=== PATIENT | female | born 1930 | race Caucasian/White ===

== ENCOUNTER → 2017-08-06 | Outpatient (CLI) | payer MEDICARE ==
[2017-08-06 12:41] LABS: ABSOLUTE EOSINOPHILS # (AUTO) 0.2 10^3/uL (0.0-0.6); ABSOLUTE LYMPHOCYTES (AUTO) 1.9 10^3/uL (0.5-4.7); ABSOLUTE MONOCYTES (AUTO) 0.7 10^3/uL (0.1-1.4); ABSOLUTE NEUT (AUTO) 6.2 10^3/uL (1.7-8.2); BASOPHILS % (AUTO) 0.5 % (0-2); EOSINOPHILS % (AUTO) 2.6 % (0-6); HEMATOCRIT 35.1 % (36.0-47.0); HEMOGLOBIN 11.9 g/dL (12.0-15.5); LYMPHOCYTES % (AUTO) 21.3 % (13-45); MEAN CORPUSCULAR HEMOGLOBIN 32.1 pg (27.0-33.4); MEAN CORPUSCULAR HGB CONC 33.9 g/dL (32.0-36.0); MEAN CORPUSCULAR VOLUME 95 fl (80-97); MONOCYTES % (AUTO) 7.7 % (3-13); PLATELET COUNT 214 10^3/uL (150-450); RED CELL DISTRIBUTION WIDTH 13.8 % (11.5-14.0); SEGMENTED NEUTROPHILS % (AUTO) 67.9 % (42-78); TOTAL CELLS COUNTED % (AUTO) 100 %; WHITE BLOOD COUNT 9.1 10^3/uL (4.0-10.5)
[2017-08-06 13:07] LABS: ALANINE AMINOTRANSFERASE 25 U/L (9-52); ALBUMIN 3.5 g/dL (3.5-5.0); ALKALINE PHOSPHATASE 91 U/L (38-126); ASPARTATE AMINO TRANSFERASE 23 U/L (14-36); BILIRUBIN,DIRECT 0.3 mg/dL (0.0-0.4); BILIRUBIN,TOTAL 0.5 mg/dL (0.2-1.3); BLOOD UREA NITROGEN 13 mg/dL (7-20); CALCIUM 10.2 mg/dL (8.4-10.2); GLUCOSE 110 mg/dL (75-110); TOTAL PROTEIN 6.7 g/dL (6.3-8.2)
[2017-08-06 13:12] LABS: C-REACTIVE PROTEIN < 5.0 mg/L (<10.0)
[2017-08-06 13:19] LABS: ANION GAP 6 (5-19); CARBON DIOXIDE 32 mmol/L (22-30); CHLORIDE 103 mmol/L (98-107); SODIUM 141.3 mmol/L (137-145)
[2017-08-06 13:21] LABS: ERYTHROCYTE SEDIMENTATION RATE 44 mm/hr (0-30)
--- NOTE | 2017-08-07 11:47 | XCELERA REPORT ---
[address] [address] Lower Extremity Arterial Evaluation Name: QUANG ORTIZ Age: 86 yrs Gender: Female : 1930 Patient Status: Outpatient Patient Location: Study Date: 08/06/2017 11:12 AM Procedure: A color flow and duplex scan of the lower extremity arteries was performed bilaterally with velocity and waveform anaylsis. Ankle brachial indicies performed. 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 Monophasic in the Posterior Tibial artery. Reversal of flow distally in the Posterior Tibial artery. 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 With sequential disease. Ankle Brachial index not obtainable due to bandaging. Left Side Arterial Evaluation Normal velocity and biphasic waveforms ,fairly well preserved amplitude noted from the Common Femoral artery to the Dorsalis Pedis artery. Monophasic in the Posterior Tibial artery. 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 With sequential disease. Ankle Brachial index not obtainable due to bandaging. Interpretation Summary Moderate hemodynamically significant lesions in the bilateral lower extremities, on duplex imaging, at rest. : SAMMIE RING > Juan Carias
== END ==
LOC: SP 10:16
PROVIDERS: ATTEND Preventive Medicine Undersea and Hyperbaric Medicine
DX: L97.422 Non-pressure chronic ulcer of left heel and midfoot with fat layer exposed (principal)
CPT/HCPCS: 36415; 80053; 85025; 85652; 86140; 93925

== ENCOUNTER 2017-12-12 16:10 | Inpatient (IN) | payer MEDICARE ==
[2017-12-12] MEDS ORDERED: VANCOMYCIN HCL INJ 1000 MG VIAL IV ONE (16:48)
--- NOTE | 2017-12-12 16:48 | ER Document Report ---
ED General - General Chief Complaint: Urinary Problem Stated Complaint: URINARY ISSUES Time Seen by Provider: 12/12/17 16:40 Mode of Arrival: Ambulatory Information source: Patient Notes: 87-year-old female with a history of hypertension, dyslipidemia, remote history of bladder cancer who was sent to the emergency room because hematuria. On physical exam, patient does have noticeable erythema and weeping wound of the right lower extremity. TRAVEL OUTSIDE OF THE [place] IN LAST 30 DAYS: No - HPI Onset: Just prior to arrival Onset/Duration: Gradual Quality of pain: No pain Severity: None Pain Level: Denies Associated symptoms: denies: Chest pain, Fever, Shortness of breath Exacerbated by: Denies Relieved by: Denies Similar symptoms previously: Yes Recently seen / treated by doctor: No - Related Data Allergies/Adverse Reactions: Sulfa (Sulfonamide Antibiotics) Allergy (Mild, Verified 09/20/15 09:40) rash ether Allergy (Mild, Uncoded 09/20/15 09:40) muscle spasms Past Medical History - General Information source: Patient - Social History Smoking Status: Unknown if Ever Smoked Cigarette use (# per day): No Chew tobacco use (# tins/day): No Frequency of alcohol use: None Drug Abuse: None Lives with: Family Family History: Reviewed & Not Pertinent Patient has suicidal ideation: No Patient has homicidal ideation: No - Past Medical History Cardiac Medical History: Reports: Hx Hypercholesterolemia, Hx Hypertension Denies: Hx Heart Attack Pulmonary Medical History: Denies: Hx Asthma Neurological Medical History: Denies: Hx Cerebrovascular Accident, Hx Seizures Renal/ Medical History: Denies: Hx Peritoneal Dialysis GI Medical History: Denies: Hx Hepatitis, Hx Hiatal Hernia, Hx Ulcer Infectious Medical History: Denies: Hx Hepatitis Past Surgical History: Reports: Hx Genitourinary Surgery - bladder surgery, Hx Hysterectomy. Denies: Hx Mastectomy, Hx Open Heart Surgery, Hx Pacemaker Review of Systems - Review of Systems Constitutional: denies: Chills, Fever EENT: No symptoms reported Cardiovascular: No symptoms reported Respiratory: No symptoms reported Gastrointestinal: No symptoms reported Genitourinary: See HPI Female Genitourinary: See HPI Musculoskeletal: See HPI Skin: See HPI Hematologic/Lymphatic: No symptoms reported Neurological/Psychological: See HPI Physical Exam - Vital signs Vitals: Temp Pulse Resp BP Pulse Ox 98.6 F 84 18 132/65 H 99 12/12/17 16:18 12/12/17 16:18 12/12/17 16:18 12/12/17 16:18 12/12/17 16:18 Notes: Physical exam: GENERAL: Well 87-year-old female who is alert, hard of hearing, no acute distress HEAD: Atraumatic, normocephalic. EYES: Pupils equal round and reactive to light, extraocular movements intact, sclera anicteric, conjunctiva are normal. ENT: TMs normal, nares patent, oropharynx clear without exudates. Moist mucous membranes. NECK: Normal range of motion, supple without obvious mass or JVD. LUNGS: Breath sounds clear to auscultation bilaterally and equal. No wheezes rales or rhonchi. HEART: Regular rate and rhythm without murmurs, rubs or gallops. ABDOMEN: Soft, normoactive bowel sounds. No tenderness to palpation. No guarding, no rebound. No masses appreciated. EXTREMITIES: Right lower extremity shows a weeping wound over the distal calf with erythema from the ankle detention up the tibia with warmth. No obvious fluctuance. DP pulse is easily dopplerable (it is been marked). There is good capillary refill to the foot. NEUROLOGICAL: Cranial nerves II through XII grossly intact. Normal speech, moving all extremities. PSYCH: Normal mood, normal affect. SKIN: Warm, Dry, normal turgor, no rashes or lesions noted. Course - Re-evaluation Re-evalutation: 12/12/17 21:40 Note: I have spoken to the family: The patient has been weak, she has been falling. She has a remote history of bladder cancer and started having blood in the urine so they were concerned and brought her into the hospital. A Loya was placed and she does have red blood cells and white blood cells and bacteria in the urine. A CT and an ultrasound showed no obvious bladder mass. I have explained to the family that this does not exclude a bladder cancer return, but a reasonable approach would be to treat her as a hemorrhagic cystitis first and see the response. Additionally, on the physical exam, the patient has a very significant right lower extremity cellulitis developing around a posterior wound. She does have good distal pulses. But the excess cellulitis is extending from the ankle all the way up to the proximal knee. Thus, she was started on IV antibiotics for cellulitis as well. - Vital Signs Vital signs: Temp Pulse Resp BP Pulse Ox 99.1 F 84 22 H 141/63 H 99 12/12/17 22:42 12/12/17 16:18 12/12/17 22:01 12/12/17 22:01 12/12/17 22:01 - Laboratory Result Diagrams: 12/12/17 17:41 12/12/17 18:30 Laboratory results interpreted by me: 12/12/17 12/12/17 12/12/17 17:41 18:13 18:30 RBC 3.26 L Hgb 10.8 L Hct 31.4 L RDW 14.5 H Sodium 136.5 L Total Protein 6.1 L Albumin 3.0 L Urine Protein 100 H Urine Glucose (UA) 50 H Urine Ketones TRACE H Urine Blood LARGE H Urine Ascorbic Acid 20 H - Diagnostic Test Radiology reviewed: Image reviewed, Reports reviewed - Renal ultrasound shows no bladder masses. CT of the abdomen shows no masses. X-rays show no bony lesions Critical Care Note - Critical Care Note Total time excluding time spent on procedures (mins): 60 Discharge - Discharge Clinical Impression: Hemorrhagic cystitis, Right lower extremity cellulitis Condition: Stable Disposition: ADMITTED INPATIENT Admitting Provider: Hospitalist - Dr. Alas Unit Admitted: Medical Floor
--- NOTE | 2017-12-12 17:16 | RADIOLOGY REPORT (SQ) ---
EXAM DESCRIPTION: CT LTD RENAL STONE PROTOCOL ON COMPLETED DATE/TIME: 12/12/2017 5:02 pm REASON FOR STUDY: hematuria COMPARISON: None. TECHNIQUE: CT scan of the abdomen and pelvis performed without intravenous or oral contrast. Images reviewed with lung, soft tissue, and bone windows. Reconstructed coronal and sagittal MPR images revi ewed. All images stored on PACS. All CT scanners at this facility use dose modulation, iterative reconstruction, and/or weight based d osing when appropriate to reduce radiation dose to as low as reasonably achievable (ALARA). [facility]: Dose Right [facility]: CareDose [facility]: Dose Right [facility]: Teradose 4D [facility]: Smart Tuloko RADIATION DOSE: CT Rad equipment meets quality standard of care and radiation dose reduction techniq ues were employed. CTDIvol: 13.6 mGy. DLP: 665 mGy-cm.mGy. LIMITATIONS: None. FINDINGS: LOWER CHEST: Cardiomegaly. NON-CONTRASTED LIVER, SPLEEN, ADRENALS: Evaluation limited by lack of IV contrast. No identified sign ificant masses. PANCREAS: No masses. No peripancreatic inflammatory changes. GALLBLADDER: A large gallstone is present. RIGHT KIDNEY AND URETER: No suspicious masses. Assessment limited by lack of IV contrast. A tiny no nobstructing intrarenal calculus is present. No hydronephrosis or hydroureter. LEFT KIDNEY AND URETER: No suspicious masses. Assessment limited by lack of IV contrast. There is 6 mm nonobstructing lower calyceal calculus. No hydronephrosis or hydroureter. AORTA AND RETROPERITONEUM: No aneurysm. No retroperitoneal masses or adenopathy. BOWEL AND PERITONEAL CAVITY: No obvious masses or inflammatory changes. No free fluid. APPENDIX: Not identified. PELVIS, BLADDER, AND ABDOMINAL WALL:The urinary bladder is normal. There is an 8 cm wide ventral her mamadou containing unobstructed bowel. BONES: Degenerative disc disease. No osseous lesions. 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 OTHER: No other significant finding. IMPRESSION: 1. Cardiomegaly. 2. Cholelithiasis. 3. A nonobstructing intrarenal calculus in each kidney. 4. Ventral hernia containing unobstructed bowel. 5. Degenerative disc disease. 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 COMMENT: Quality ID # [id number]: Final reports with documentation of one or more dose reduction techniques (e.g., Automated exposure control, adjustment of the mA and/or kV according to patient size, use of iterative reconstruction technique) TECHNICAL DOCUMENTATION: JOB ID: [id number] [employer], a Division of [employer]- All Rights Reserved Reading location - IP/workstation name: [email or web address]
--- NOTE | 2017-12-12 17:29 | RADIOLOGY REPORT (SQ) ---
EXAM DESCRIPTION: TIBIA FIBULA RIGHT COMPLETED DATE/TIME: 12/12/2017 5:17 pm REASON FOR STUDY: infected wound COMPARISON: None. NUMBER OF VIEWS: Two views. TECHNIQUE: Two radiographic images acquired of the right tibia and fibula to include the knee and an kle in at least one projection. LIMITATIONS: None. FINDINGS: MINERALIZATION: Osteopenia. BONES: No acute fracture or dislocation. No worrisome bone lesions. SOFT TISSUES: Chondrocalcinosis of the right knee. Vascular calcifications. OTHER: No other significant finding. IMPRESSION: NO RADIOGRAPHIC EVIDENCE OF ACUTE INJURY. TECHNICAL DOCUMENTATION: JOB ID: [id number] [employer]- All Rights Reserved Reading location - IP/workstation name: [email or web address]
--- NOTE | 2017-12-12 17:29 | RADIOLOGY REPORT (SQ) ---
EXAM DESCRIPTION: CHEST SINGLE VIEW COMPLETED DATE/TIME: 12/12/2017 5:17 pm REASON FOR STUDY: hematuria COMPARISON: 09/24/2015 NUMBER OF VIEWS: One view. TECHNIQUE: Single frontal radiographic view of the chest acquired. LIMITATIONS: None. FINDINGS: LUNGS AND PLEURA: No new opacities, masses or pneumothorax. No pleural effusion. Attenuate d blood vessels and flattened enrico-diaphragms. MEDIASTINUM AND HILAR STRUCTURES: No masses. Contour normal. HEART AND VASCULAR STRUCTURES: Heart stable in size. Normal vasculature. BONES: No acute findings. HARDWARE: None in the chest. OTHER: No other significant finding. IMPRESSION: COPD. NO ACUTE RADIOGRAPHIC FINDING IN THE CHEST. TECHNICAL DOCUMENTATION: JOB ID: [id number] [employer]- All Rights Reserved Reading location - IP/workstation name: [email or web address]
[2017-12-12 17:51] LABS: ABSOLUTE EOSINOPHILS # (AUTO) 0.2 10^3/uL (0.0-0.6); ABSOLUTE LYMPHOCYTES (AUTO) 1.4 10^3/uL (0.5-4.7); ABSOLUTE MONOCYTES (AUTO) 0.9 10^3/uL (0.1-1.4); ABSOLUTE NEUT (AUTO) 5.8 10^3/uL (1.7-8.2); BASOPHILS % (AUTO) 0.6 % (0-2); EOSINOPHILS % (AUTO) 2.8 % (0-6); HEMATOCRIT 31.4 % (36.0-47.0); HEMOGLOBIN 10.8 g/dL (12.0-15.5); LYMPHOCYTES % (AUTO) 16.8 % (13-45); MEAN CORPUSCULAR HEMOGLOBIN 33.2 pg (27.0-33.4); MEAN CORPUSCULAR HGB CONC 34.4 g/dL (32.0-36.0); MEAN CORPUSCULAR VOLUME 97 fl (80-97); PLATELET COUNT 232 10^3/uL (150-450); RED BLOOD COUNT 3.26 10^6/uL (3.72-5.28); RED CELL DISTRIBUTION WIDTH 14.5 % (11.5-14.0); SEGMENTED NEUTROPHILS % (AUTO) 68.8 % (42-78); TOTAL CELLS COUNTED % (AUTO) 100 %; WHITE BLOOD COUNT 8.4 10^3/uL (4.0-10.5)
[2017-12-12 18:44] LABS: APPEARANCE,URINE SLIGHTLY-CLOUDY; BILIRUBIN,URINE NEGATIVE (NEGATIVE); COLOR,URINE RED; GLUCOSE, URINE 50 mg/dL (NEGATIVE); KETONES,URINE TRACE mg/dL (NEGATIVE); LEUKOCYTE ESTERASE,URINE NEGATIVE (NEGATIVE); NITRITE,URINE NEGATIVE (NEGATIVE); PROTEIN,URINE 100 mg/dL (NEGATIVE); URINE SPECIFIC GRAVITY 1.009; UROBILINOGEN,URINE NEGATIVE mg/dL (<2.0)
[2017-12-12 19:15] LABS: ALANINE AMINOTRANSFERASE 31 U/L (9-52); ALKALINE PHOSPHATASE 78 U/L (38-126); ANION GAP 10 (5-19); ASPARTATE AMINO TRANSFERASE 24 U/L (14-36); BILIRUBIN,DIRECT 0.3 mg/dL (0.0-0.4); BILIRUBIN,TOTAL 0.3 mg/dL (0.2-1.3); BLOOD UREA NITROGEN 18 mg/dL (7-20); CALCIUM 9.8 mg/dL (8.4-10.2); CARBON DIOXIDE 28 mmol/L (22-30); CHLORIDE 99 mmol/L (98-107); GLUCOSE 104 mg/dL (75-110); POTASSIUM 4.3 mmol/L (3.6-5.0); SODIUM 136.5 mmol/L (137-145); TOTAL PROTEIN 6.1 g/dL (6.3-8.2)
[2017-12-12] MEDS ORDERED: MORPHINE SULFATE 10 MG/ML INJ IV PRN (20:12)
[2017-12-12] MEDS ORDERED: ONDANSETRON HCL INJ/PF 4 MG/2 ML SDV IV ONE (20:13)
--- NOTE | 2017-12-12 21:06 | RADIOLOGY REPORT (SQ) ---
EXAM DESCRIPTION: U/S RETROPERITON (RENAL/AORTA) COMPLETED DATE/TIME: 12/12/2017 8:56 pm REASON FOR STUDY: gross hemturia, h/o bladder cancer COMPARISON: CT from 12/12/2017 TECHNIQUE: Dynamic and static grayscale images acquired of the kidneys and bladder and recorded on P ACS. Additional selected color Doppler and spectral images recorded. LIMITATIONS: None. FINDINGS: RIGHT KIDNEY: Normal size. Normal echogenicity. No solid or suspicious masses. No hydronep hrosis. No calcifications. LEFT KIDNEY: Normal size. Normal echogenicity. No solid or suspicious masses. No hydronephrosis. No calcifications. BLADDER: No masses visualized. Gonzalez catheter present. OTHER FINDINGS: No other significant finding. IMPRESSION: UNREMARKABLE RENAL ULTRASOUND. GONZALEZ CATHETER WITHIN THE BLADDER. TECHNICAL DOCUMENTATION: JOB ID: [id number] [employer]- All Rights Reserved Reading location - IP/workstation name: [email or web address]
[2017-12-12] MEDS ORDERED: CEFTRIAXONE 1 GM/D5W RTU 1 GM/50 ML RTUPB IV ONE (21:28)
[2017-12-12] MEDS ORDERED: MAG HYDROX/AL HYDROX/SIMETH SUSP 30 ML UDCUP PO PRN (21:40)
[2017-12-12] MEDS ORDERED: ACETAMINOPHEN 325 MG TABLET PO PRN (21:40)
[2017-12-12] MEDS ORDERED: NORMAL SALINE 1000 ML 1,000 ML IV SCH (21:45)
[2017-12-12] MEDS: HEPARIN SOD (PORCINE) 5,000 UNIT/ML 1 ML SYRINGE SUBCUT SCH (23:16)
[2017-12-12] MEDS: METOPROLOL TARTRATE 50 MG TABLET PO SCH (23:17)
[2017-12-13 05:24] LABS: ABSOLUTE EOSINOPHILS # (AUTO) 0.2 10^3/uL (0.0-0.6); ABSOLUTE LYMPHOCYTES (AUTO) 1.5 10^3/uL (0.5-4.7); ABSOLUTE MONOCYTES (AUTO) 0.8 10^3/uL (0.1-1.4); ABSOLUTE NEUT (AUTO) 5.1 10^3/uL (1.7-8.2); BASOPHILS % (AUTO) 0.6 % (0-2); EOSINOPHILS % (AUTO) 2.4 % (0-6); HEMATOCRIT 29.5 % (36.0-47.0); HEMOGLOBIN 10.3 g/dL (12.0-15.5); LYMPHOCYTES % (AUTO) 19.9 % (13-45); MEAN CORPUSCULAR HEMOGLOBIN 33.7 pg (27.0-33.4); MEAN CORPUSCULAR HGB CONC 34.8 g/dL (32.0-36.0); MEAN CORPUSCULAR VOLUME 97 fl (80-97); MONOCYTES % (AUTO) 10.9 % (3-13); PLATELET COUNT 185 10^3/uL (150-450); RED BLOOD COUNT 3.04 10^6/uL (3.72-5.28); RED CELL DISTRIBUTION WIDTH 14.2 % (11.5-14.0); SEGMENTED NEUTROPHILS % (AUTO) 66.2 % (42-78); TOTAL CELLS COUNTED % (AUTO) 100 %; WHITE BLOOD COUNT 7.6 10^3/uL (4.0-10.5)
--- NOTE | 2017-12-13 05:40 | PDOC H&P ---
History of Present Illness Admission Date/PCP: 12/12/17 21:58 ALONZO IBRAHIM Patient complains of: Right leg pain and falls History of Present Illness: QUANG ORTIZ is a 87 year old female with a past medical history of peripheral neuropathy, left heel ulcer, hypertension, chronic left bundle branch block, remote bladder cancer unclear status and gait instability. Patient presents with 12 hours of hematuria, right leg erythema and pain prompting her to seek evaluation in the emergency room where she is found to have moe hematuria, right leg cellulitis and stage IV left heel ulcer. She started on empiric antibiotics and referred to the hospitalist for admission. Patient denies recent change in medications, antibiotics and is otherwise felt well. She admits to exceptional gait instability and is essentially bedbound with exception of transfer from bed to commode. Past Medical History Cardiac Medical History: Reports: Hyperlipidema, Hypertension Denies: Myocardial Infarction Pulmonary Medical History: Denies: Asthma Neurological Medical History: Denies: Seizures Malignancy Medical History: Reports: Other - Bladder cancer GI Medical History: Denies: Hepatitis, Hiatal Hernia Hematology: Denies: Anemia, Sickle Cell Disease Past Surgical History Past Surgical History: Reports: Hysterectomy Denies: Amputation, Mastectomy, Pacemaker Social History Information Source: Patient, Relative Lives with: Family Smoking Status: Never Smoker Frequency of Alcohol Use: None Hx Recreational Drug Use: No Drugs: None Hx Prescription Drug Abuse: No - Advance Directive Resuscitation Status: Full Code Family History Family History: Hypertension Parental Family History Reviewed: Yes Children Family History Reviewed: Yes Sibling(s) Family History Reviewed.: Yes Medication/Allergy Home Medications: Cyanocobalamin (Vitamin B-12) [Vitamin B-12 1000 mcg Tablet] 1,000 mcg PO ASDIR 01/28/13 Fexofenadine HCl [Romana] 180 mg PO DAILY 01/28/13 Pravastatin Sodium [Pravachol] 40 mg PO QHS 01/28/13 Ranitidine HCl [Zantac 150 mg Tablet] 150 mg PO BID 01/28/13 Ascorbic Acid [Vitamin C with Georgie Hips] 1,000 mg PO DAILY 09/20/15 Calcium Citrate/Vitamin D3 [Calcitrate + Vit D Caplet] 1 each PO DAILY 09/20/15 Cranberry Fruit Concentrate [Cranberry 450 mg Tablet] 450 mg PO BID 09/20/15 Folic Acid/Multivit-Min/Lutein [Centrum Silver Chewable Tablet] 1 each PO DAILY 09/20/15 Glucosamine/D3/Boswellia Lily [Osteo Bi-Flex Caplet] 1 each PO BID 09/20/15 Potassium Gluconate [Potassium] 2 tab PO DAILY 09/20/15 Vit A/Vit C/Vit E/Zinc/Copper [Preservision Areds Softgel] 1 each PO BID Vitamin E 1,000 unit PO DAILY 09/20/15 Aspirin [Adult Low Dose Aspirin EC] 81 mg PO DAILY #30 tablet.dr 09/27/15 Benazepril HCl [Lotensin 10 mg Tablet] 10 mg PO DAILY #30 tablet 09/27/15 Levofloxacin [Levaquin 500 mg Tablet] 500 mg PO DAILY #7 tablet 09/27/15 Lidocaine 1 each TP DAILY PRN #30 adh..patch 09/27/15 Metoprolol Tartrate [Lopressor 50 mg Tablet] 50 mg PO Q12 #60 tablet 09/27/15 Benazepril/Hydrochlorothiazide [Lotensin Hct 10-12.5 mg Tablet] 1 each PO DAILY #30 tablet 09/28/15 Tramadol HCl [Ultram] 50 mg PO Q12H PRN #20 tablet 09/28/15 Allergies/Adverse Reactions: Sulfa (Sulfonamide Antibiotics) Allergy (Mild, Verified 09/20/15 09:40) rash ether Allergy (Mild, Uncoded 09/20/15 09:40) muscle spasms Review of Systems Constitutional: PRESENT: as per HPI, fatigue, weakness. ABSENT: chills, fever(s ), headache(s), weight gain, weight loss Eyes: ABSENT: visual disturbances Ears: ABSENT: hearing changes Cardiovascular: ABSENT: chest pain, dyspnea on exertion, edema, orthropnea, palpitations Respiratory: ABSENT: cough, hemoptysis Gastrointestinal: ABSENT: abdominal pain, constipation, diarrhea, hematemesis, hematochezia, nausea, vomiting Genitourinary: PRESENT: as per HPI. ABSENT: dysuria, hematuria Musculoskeletal: PRESENT: as per HPI, muscle weakness. ABSENT: joint swelling Integumentary: PRESENT: as per HPI, lesions - Left heel 2 x 2 centimeter stage IV ulcer, right leg Cellulitis. ABSENT: rash, wounds Neurological: ABSENT: abnormal gait, abnormal speech, confusion, dizziness, focal weakness, syncope Psychiatric: ABSENT: anxiety, depression, homidical ideation, suicidal ideation Endocrine: ABSENT: cold intolerance, heat intolerance, polydipsia, polyuria Hematologic/Lymphatic: ABSENT: easy bleeding, easy bruising Physical Exam Vital Signs: Temp Pulse Resp BP Pulse Ox 99.8 F 109 H 14 127/59 H 100 12/13/17 01:20 12/13/17 01:20 12/13/17 01:20 12/13/17 01:20 12/13/17 01:20 Intake & Output 12/11/17 12/12/17 12/13/17 11:59 11:59 11:59 Weight 64.5 kg General appearance: PRESENT: cooperative, mild distress, other - Hard of hearing Head exam: PRESENT: atraumatic, normocephalic Eye exam: PRESENT: conjunctiva pink, EOMI, PERRLA. ABSENT: scleral icterus Ear exam: PRESENT: normal external ear exam Mouth exam: PRESENT: moist, tongue midline Neck exam: ABSENT: carotid bruit, JVD, lymphadenopathy, thyromegaly Respiratory exam: PRESENT: clear to auscultation roya. ABSENT: rales, rhonchi, wheezes Cardiovascular exam: PRESENT: RRR. ABSENT: diastolic murmur, rubs, systolic murmur Pulses: PRESENT: normal dorsalis pedis pul Vascular exam: PRESENT: normal capillary refill GI/Abdominal exam: PRESENT: normal bowel sounds, soft. ABSENT: distended, guarding, mass, organolmegaly, rebound, tenderness Rectal exam: PRESENT: deferred Extremities exam: PRESENT: tenderness - Left heel 2 x 2 centimeter stage IV heel ulcer, right leg Cellulitis, other Neurological exam: PRESENT: alert, awake, oriented to person, oriented to place , oriented to time, oriented to situation, CN II-XII grossly intact. ABSENT: motor sensory deficit Psychiatric exam: PRESENT: appropriate affect, normal mood. ABSENT: homicidal ideation, suicidal ideation Skin exam: PRESENT: dry, intact, warm. ABSENT: cyanosis, rash Results Laboratory Results: 12/13/17 04:32 12/13/17 04:32 WBC 7.6 RBC 3.04 L Hgb 10.3 L Hct 29.5 L MCV 97 MCH 33.7 H MCHC 34.8 RDW 14.2 H Plt Count 185 Seg Neutrophils % 66.2 Lymphocytes % 19.9 Monocytes % 10.9 Eosinophils % 2.4 Basophils % 0.6 Absolute Neutrophils 5.1 Absolute Lymphocytes 1.5 Absolute Monocytes 0.8 Absolute Eosinophils 0.2 Absolute Basophils 0.0 Impressions: Limited or Localized CT 12/12/17 16:44 IMPRESSION: 1. Cardiomegaly. 2. Cholelithiasis. 3. A nonobstructing intrarenal calculus in each kidney. 4. Ventral hernia containing unobstructed bowel. 5. Degenerative disc disease. 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 Chest X-Ray 12/12/17 16:45 IMPRESSION: COPD. NO ACUTE RADIOGRAPHIC FINDING IN THE CHEST. Tibia/Fibula X-Ray 12/12/17 16:45 IMPRESSION: NO RADIOGRAPHIC EVIDENCE OF ACUTE INJURY. Renal Ultrasound 12/12/17 18:24 IMPRESSION: UNREMARKABLE RENAL ULTRASOUND. GONZALEZ CATHETER WITHIN THE BLADDER. Assessment & Plan - Diagnosis (1) Hematuria Is this a current diagnosis for this admission?: Yes Plan: Urology consult, concern for history of bladder cancer. Follow-up CBC and urology consult (2) Ulcer of left heel Is this a current diagnosis for this admission?: Yes Plan: Concern for osteomyelitis, surgical consultation (3) Cellulitis Is this a current diagnosis for this admission?: Yes Plan: Empiric antibiotics, follow-up blood culture and CBC (4) Falls Is this a current diagnosis for this admission?: Yes Plan: Acute on chronic debility, physical therapy evaluation - Time Time Spent: 50 to 70 Minutes - Inpatient Certification Medical Necessity: Need Close Monitoring Due to Risk of Patient Decompensation
[2017-12-13 05:50] LABS: ANION GAP 7 (5-19); BLOOD UREA NITROGEN 13 mg/dL (7-20); CALCIUM 9.3 mg/dL (8.4-10.2); CARBON DIOXIDE 28 mmol/L (22-30); CHLORIDE 105 mmol/L (98-107); GLUCOSE 93 mg/dL (75-110); POTASSIUM 4.3 mmol/L (3.6-5.0); SODIUM 140.3 mmol/L (137-145)
[2017-12-13] MEDS ORDERED: VANCOMYCIN HCL 0 MG in DEXTROSE 5%-WATER 250 ML IV NR (08:00)
[2017-12-13] MEDS ORDERED: PIPERACILLIN SODIUM/TAZOBACTAM 3.375 GM in NORMAL SALINE 100 ML IV SCH (09:00)
[2017-12-13] MEDS: PIPERACILLIN SODIUM/TAZOBACTAM 2.25 GM in NORMAL SALINE 50 ML IV SCH ×3 (09:33→21:35)
[2017-12-13] MEDS: ASPIRIN 81 MG TABLET, ENT COATED PO SCH (09:33)
[2017-12-13] MEDS: BENAZEPRIL HCL 10 MG TABLET PO SCH (11:37)
[2017-12-13] MEDS: METOPROLOL TARTRATE 50 MG TABLET PO SCH ×2 (11:37→21:35)
--- NOTE | 2017-12-13 15:01 | PDOC CONSULTATION ---
Consultation Consult Date: 12/13/17 Consult reason:: Wounds on feet History of Present Illness Admission Date/PCP: 12/12/17 21:58 ALONZO IBRAHIM History of Present Illness: QUANG ORTIZ is a 87 year old female Debilitated, essentially bedridden, status post total left knee replacement, known bilateral lower extremity wounds, followed with advanced wound clinic, admitted to the hospital service for management of hematuria. Surgery consulted for wound management. Past Medical History Cardiac Medical History: Reports: Hyperlipidema, Hypertension Denies: Myocardial Infarction Pulmonary Medical History: Denies: Asthma Neurological Medical History: Denies: Seizures Malignancy Medical History: Reports: Other - Bladder cancer GI Medical History: Denies: Hepatitis, Hiatal Hernia Hematology: Denies: Anemia, Sickle Cell Disease Past Surgical History Past Surgical History: Reports: Hysterectomy Denies: Amputation, Mastectomy, Pacemaker Social History Lives with: Family Smoking Status: Never Smoker Frequency of Alcohol Use: None Hx Recreational Drug Use: No Drugs: None Hx Prescription Drug Abuse: No - Advance Directive Resuscitation Status: Full Code Family History Family History: Hypertension Parental Family History Reviewed: Yes Children Family History Reviewed: Yes Sibling(s) Family History Reviewed.: Yes Medication/Allergy Home Medications: Alprazolam [Xanax 0.25 mg Tablet] 0.25 mg PO QHS 12/13/17 Ascorbic Acid [Vitamin C 500 mg Tablet] 500 mg PO QPM 12/13/17 Aspirin [Ecotrin 81 mg EC Tablet] 81 mg PO BID 12/13/17 Benazepril HCl [Lotensin 10 mg Tablet] 10 mg PO DAILY 12/13/17 Ca/D3/Mag Ox/Zinc/[employer]/Parvez/Bor [Calcium 600-D3 Plus Caplet] 1 tab PO QPM Cranberry Fruit Concentrate [Cranberry] 450 mg PO DAILY 12/13/17 Cyanocobalamin (Vitamin B-12) [Vitamin B12] 2,500 mcg PO TUTH@1800 12/13/17 Ferrous Sulfate [High Potency Iron] 27 mg PO QPM 12/13/17 Fexofenadine HCl [Romana Allergy] 180 mg PO DAILY 12/13/17 Hydrochlorothiazide [Hydrodiuril 12.5 mg Capsule] 12.5 mg PO DAILY 12/13/17 Meloxicam [Mobic] 7.5 mg PO DAILY 12/13/17 Metoprolol Tartrate [Lopressor 50 mg Tablet] 50 mg PO Q12 12/13/17 Multivitamin [Tab-A-Michaelle (Multiple Vitamin) Tablet] 1 tab PO DAILY 12/13/17 Oxybutynin Chloride [Ditropan 5 mg Tablet] 5 mg PO BID 12/13/17 Potassium 99 mg PO QPM 12/13/17 Pravastatin Sodium [Pravachol] 40 mg PO QHS 12/13/17 Ranitidine HCl [Zantac 150 mg Tablet] 50 mg PO BID 12/13/17 Ropinirole HCl [Requip] 0.5 mg PO QHS 12/13/17 Tramadol HCl [Ultram 50 mg Tablet] 50 mg PO QAM 12/13/17 Tramadol HCl [Ultram 50 mg Tablet] 100 mg PO QHS 12/13/17 Vitamin E 400 unit PO QPM 12/13/17 Allergies/Adverse Reactions: Sulfa (Sulfonamide Antibiotics) Allergy (Mild, Verified 09/20/15 09:40) rash ether Allergy (Mild, Uncoded 09/20/15 09:40) muscle spasms Review of Systems ROS unobtainable: Due to mental status, Other - And hard of hearing Constitutional: PRESENT: as per HPI - Patient bedridden does get up with a walker ocassionally Physical Exam Vital Signs: Temp Pulse Resp BP Pulse Ox 97.9 F 65 16 110/53 L 94 12/13/17 11:28 12/13/17 11:28 12/13/17 11:28 12/13/17 11:28 12/13/17 11:28 Intake & Output 12/12/17 12/13/17 12/14/17 06:59 06:59 06:59 Output Total 850 Balance -850 Weight 64.5 kg General appearance: PRESENT: no acute distress Mouth exam: PRESENT: dry mucosa Extremities exam: PRESENT: other Musculoskeletal exam: PRESENT: other - Operative scar left knee; chronic skin changes right lower extremity with peeling; irregular but clean superficial granulating ulcer lateral aspect right lower extremity; very small stage II pressure ulcer left heel palpable dorsalis pedis pulses bilaterally Results Laboratory Results: 12/13/17 04:32 12/13/17 04:32 12/13/17 12/13/17 04:32 04:32 WBC 7.6 RBC 3.04 L Hgb 10.3 L Hct 29.5 L MCV 97 MCH 33.7 H MCHC 34.8 RDW 14.2 H Plt Count 185 Seg Neutrophils % 66.2 Lymphocytes % 19.9 Monocytes % 10.9 Eosinophils % 2.4 Basophils % 0.6 Absolute Neutrophils 5.1 Absolute Lymphocytes 1.5 Absolute Monocytes 0.8 Absolute Eosinophils 0.2 Absolute Basophils 0.0 Sodium 140.3 Potassium 4.3 Chloride 105 Carbon Dioxide 28 Anion Gap 7 BUN 13 Creatinine 0.75 Est GFR ( Amer) > 60 Est GFR (Non-Af Amer) > 60 Glucose 93 Calcium 9.3 Impressions: Limited or Localized CT 12/12/17 16:44 IMPRESSION: 1. Cardiomegaly. 2. Cholelithiasis. 3. A nonobstructing intrarenal calculus in each kidney. 4. Ventral hernia containing unobstructed bowel. 5. Degenerative disc disease. 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 Chest X-Ray 12/12/17 16:45 IMPRESSION: COPD. NO ACUTE RADIOGRAPHIC FINDING IN THE CHEST. Tibia/Fibula X-Ray 12/12/17 16:45 IMPRESSION: NO RADIOGRAPHIC EVIDENCE OF ACUTE INJURY. Renal Ultrasound 12/12/17 18:24 IMPRESSION: UNREMARKABLE RENAL ULTRASOUND. GONZALEZ CATHETER WITHIN THE BLADDER. Assessment & Plan - Diagnosis (1) Cellulitis Qualifiers: Site of cellulitis: extremity Site of cellulitis of extremity: lower extremity Laterality: right Qualified Code(s): L03.115 - Cellulitis of right lower limb Is this a current diagnosis for this admission?: Yes Plan: Chronic wound, managed and advanced wound center. No evidence of active infection; likely colonized; no need for operative debridement. Recommendations for the left heel wound: 1. Pressure offloading; suggest Allevyn dressing and Heelbo pad. Change dressing daily after soapy water wash Recommendations for right leg wound 1. Allevyn dressing right lower extremity to cover open granulating surface 2. Elbow pad to right heel wall patient at bedrest (2) Ulcer of left heel Qualifiers: Non-pressure ulcer stage: with fat layer exposed Qualified Code(s): L97.422 - Non-pressure chronic ulcer of left heel and midfoot with fat layer exposed Is this a current diagnosis for this admission?: Yes Plan: Grade 2 ulcer; pressure related due to immobility; managed advanced wound center - Time Time Spent: 30 to 50 Minutes Smoking Cessation Education: 3 to 10 minutes Medications reviewed and adjusted accordingly: Yes - Inpatient Certification Based on my medical assessment, after consideration of the patient's comorbidities, presenting symptoms, or acuity I expect that the services needed warrant INPATIENT care.: Yes I certify that my determination is in accordance with my understanding of Medicare's requirements for reasonable and necessary INPATIENT services [42 CFR 412.3e].: Yes
[2017-12-13] MEDS: HEPARIN SOD (PORCINE) 5,000 UNIT/ML 1 ML SYRINGE SUBCUT SCH ×2 (15:12→21:35)
--- NOTE | 2017-12-13 15:12 | PDOC CONSULTATION ---
Consultation Consult Date: 12/13/17 Attending physician:: AYLEEN MALONEY History of Present Illness Admission Date/PCP: 12/12/17 21:58 ALONZO IBRAHIM History of Present Illness: QUANG ORTIZ is a 87 year old female Past Medical History Cardiac Medical History: Reports: Hyperlipidema, Hypertension Denies: Myocardial Infarction Pulmonary Medical History: Denies: Asthma Neurological Medical History: Denies: Seizures Malignancy Medical History: Reports: Other - Bladder cancer GI Medical History: Denies: Hepatitis, Hiatal Hernia Hematology: Denies: Anemia, Sickle Cell Disease Past Surgical History Past Surgical History: Reports: Hysterectomy Denies: Amputation, Mastectomy, Pacemaker Social History Lives with: Family Smoking Status: Never Smoker Frequency of Alcohol Use: None Hx Recreational Drug Use: No Drugs: None Hx Prescription Drug Abuse: No - Advance Directive Resuscitation Status: Full Code Family History Family History: Hypertension Parental Family History Reviewed: No Children Family History Reviewed: No Sibling(s) Family History Reviewed.: No Medication/Allergy Home Medications: Alprazolam [Xanax 0.25 mg Tablet] 0.25 mg PO QHS 12/13/17 Ascorbic Acid [Vitamin C 500 mg Tablet] 500 mg PO QPM 12/13/17 Aspirin [Ecotrin 81 mg EC Tablet] 81 mg PO BID 12/13/17 Benazepril HCl [Lotensin 10 mg Tablet] 10 mg PO DAILY 12/13/17 Ca/D3/Mag Ox/Zinc/[employer]/Parvez/Bor [Calcium 600-D3 Plus Caplet] 1 tab PO QPM Cranberry Fruit Concentrate [Cranberry] 450 mg PO DAILY 12/13/17 Cyanocobalamin (Vitamin B-12) [Vitamin B12] 2,500 mcg PO TUTH@1800 12/13/17 Ferrous Sulfate [High Potency Iron] 27 mg PO QPM 12/13/17 Fexofenadine HCl [Romana Allergy] 180 mg PO DAILY 12/13/17 Hydrochlorothiazide [Hydrodiuril 12.5 mg Capsule] 12.5 mg PO DAILY 12/13/17 Meloxicam [Mobic] 7.5 mg PO DAILY 12/13/17 Metoprolol Tartrate [Lopressor 50 mg Tablet] 50 mg PO Q12 12/13/17 Multivitamin [Tab-A-Michaelle (Multiple Vitamin) Tablet] 1 tab PO DAILY 12/13/17 Oxybutynin Chloride [Ditropan 5 mg Tablet] 5 mg PO BID 12/13/17 Potassium 99 mg PO QPM 12/13/17 Pravastatin Sodium [Pravachol] 40 mg PO QHS 12/13/17 Ranitidine HCl [Zantac 150 mg Tablet] 50 mg PO BID 12/13/17 Ropinirole HCl [Requip] 0.5 mg PO QHS 12/13/17 Tramadol HCl [Ultram 50 mg Tablet] 50 mg PO QAM 12/13/17 Tramadol HCl [Ultram 50 mg Tablet] 100 mg PO QHS 12/13/17 Vitamin E 400 unit PO QPM 12/13/17 Allergies/Adverse Reactions: Sulfa (Sulfonamide Antibiotics) Allergy (Mild, Verified 09/20/15 09:40) rash ether Allergy (Mild, Uncoded 09/20/15 09:40) muscle spasms Physical Exam Vital Signs: Temp Pulse Resp BP Pulse Ox 97.9 F 65 16 110/53 L 94 12/13/17 11:28 12/13/17 11:28 12/13/17 11:28 12/13/17 11:28 12/13/17 11:28 Intake & Output 12/12/17 12/13/17 12/14/17 06:59 06:59 06:59 Output Total 850 Balance -850 Weight 64.5 kg Results Laboratory Results: 12/13/17 04:32 12/13/17 04:32 12/13/17 12/13/17 04:32 04:32 WBC 7.6 RBC 3.04 L Hgb 10.3 L Hct 29.5 L MCV 97 MCH 33.7 H MCHC 34.8 RDW 14.2 H Plt Count 185 Seg Neutrophils % 66.2 Lymphocytes % 19.9 Monocytes % 10.9 Eosinophils % 2.4 Basophils % 0.6 Absolute Neutrophils 5.1 Absolute Lymphocytes 1.5 Absolute Monocytes 0.8 Absolute Eosinophils 0.2 Absolute Basophils 0.0 Sodium 140.3 Potassium 4.3 Chloride 105 Carbon Dioxide 28 Anion Gap 7 BUN 13 Creatinine 0.75 Est GFR ( Amer) > 60 Est GFR (Non-Af Amer) > 60 Glucose 93 Calcium 9.3 Impressions: Limited or Localized CT 12/12/17 16:44 IMPRESSION: 1. Cardiomegaly. 2. Cholelithiasis. 3. A nonobstructing intrarenal calculus in each kidney. 4. Ventral hernia containing unobstructed bowel. 5. Degenerative disc disease. 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 Chest X-Ray 12/12/17 16:45 IMPRESSION: COPD. NO ACUTE RADIOGRAPHIC FINDING IN THE CHEST. Tibia/Fibula X-Ray 12/12/17 16:45 IMPRESSION: NO RADIOGRAPHIC EVIDENCE OF ACUTE INJURY. Renal Ultrasound 12/12/17 18:24 IMPRESSION: UNREMARKABLE RENAL ULTRASOUND. GONZALEZ CATHETER WITHIN THE BLADDER. Assessment & Plan - Diagnosis (1) Hematuria Is this a current diagnosis for this admission?: Yes - Plan Summary Plan Summary: patient had history of bladder cancer 5 years ago, resected, treated and then resected again one year ago last time, now she is presenting with hematuria , blood clots, urine pink colored,, has a gonzalez catheter US does not show any pathology in the kidneys, bladder had gonzalez catheter in. Need to do cystoscopy ,
--- NOTE | 2017-12-13 17:00 | PDOC PROGRESS REPORT ---
Subjective Progress Note for:: 12/13/17 Subjective:: The patient is an 87-year-old female with a past medical history significant for peripheral neuropathy, chronic left heel ulcer, hypertension and remote history of bladder cancer. Patient has had issues with ambulatory dysfunction for a while. The patient presented with hematuria and right leg erythema. In the emergency room she was found to have gross hematuria and right lower extremity cellulitis with stage IV ulcer on the left heel. The patient was started on broad-spectrum antibiotics and referred for admission. Urology was consulted. Today the patient was seen by from the urology service. He called me and states that he is not going to be her on Saturday but recommended as calling urology clinic on Saturday to get the doctor occupational therapy professor to come perform cystoscopy. When I went to go see the patient is I found her to be quite hard of hearing. Most of my information was obtained from her daughter. I explained urology's recommendations and the daughter is a bit reluctant to do this. She follows closely with urology in [place] and would like to consider possibly doing the procedure as an outpatient there. After a long discussion we decided that we would keep her in the hospital to treat her underlying cellulitis and if the hematuria worsened by Saturday we could follow the recommendations. Otherwise she could possibly be discharged with outpatient follow-up. She also states that her mother gets quite agitated and weak when she is in the hospital. She would like for her to be released as soon as possible. The patient herself cannot hear well. She cannot really answer any of my questions. She is able to tell me that she is having pain in her lower extremities and she is not comfortable. Otherwise review of systems cannot be obtained. Reason For Visit: HEMATURIA, CELLULITIS FALLS Physical Exam Vital Signs: Temp Pulse Resp BP Pulse Ox 97.9 F 65 16 110/53 L 94 12/13/17 11:28 12/13/17 11:28 12/13/17 11:28 12/13/17 11:28 12/13/17 11:28 Intake & Output 12/12/17 12/13/17 12/14/17 06:59 06:59 06:59 Intake Total 640 Output Total 850 2900 Balance -850 -2260 Weight 64.5 kg General appearance: PRESENT: no acute distress, hard of hearing, well-developed , well-nourished, other Head exam: PRESENT: atraumatic, normocephalic Eye exam: PRESENT: conjunctiva pink, EOMI, PERRLA. ABSENT: scleral icterus Respiratory exam: PRESENT: clear to auscultation roya. ABSENT: rales, rhonchi, wheezes Cardiovascular exam: PRESENT: RRR. ABSENT: diastolic murmur, rubs, systolic murmur GI/Abdominal exam: PRESENT: normal bowel sounds, soft. ABSENT: distended, guarding, mass, organolmegaly, rebound, tenderness Rectal exam: PRESENT: deferred Extremities exam: PRESENT: full ROM, other - On the right lower extremity she has venous stasis changes with flaking skin. There is significant erythema that is warm to the touch. On the back of the calf she has 2 ulcers that are quite shallow. These would be stage II. On the left lower extremity she has a stage IV ulcer about the size of a quarter on the left heel.. ABSENT: calf tenderness, clubbing, pedal edema Neurological exam: PRESENT: alert, awake, oriented to person, oriented to place , oriented to time, oriented to situation, CN II-XII grossly intact. ABSENT: motor sensory deficit Psychiatric exam: PRESENT: appropriate affect, normal mood. ABSENT: homicidal ideation, suicidal ideation Skin exam: PRESENT: dry, intact, warm. ABSENT: cyanosis, rash Results Laboratory Results: 12/13/17 04:32 12/13/17 04:32 12/13/17 12/13/17 04:32 04:32 WBC 7.6 RBC 3.04 L Hgb 10.3 L Hct 29.5 L MCV 97 MCH 33.7 H MCHC 34.8 RDW 14.2 H Plt Count 185 Seg Neutrophils % 66.2 Lymphocytes % 19.9 Monocytes % 10.9 Eosinophils % 2.4 Basophils % 0.6 Absolute Neutrophils 5.1 Absolute Lymphocytes 1.5 Absolute Monocytes 0.8 Absolute Eosinophils 0.2 Absolute Basophils 0.0 Sodium 140.3 Potassium 4.3 Chloride 105 Carbon Dioxide 28 Anion Gap 7 BUN 13 Creatinine 0.75 Est GFR ( Amer) > 60 Est GFR (Non-Af Amer) > 60 Glucose 93 Calcium 9.3 Impressions: Limited or Localized CT 12/12/17 16:44 IMPRESSION: 1. Cardiomegaly. 2. Cholelithiasis. 3. A nonobstructing intrarenal calculus in each kidney. 4. Ventral hernia containing unobstructed bowel. 5. Degenerative disc disease. 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 Chest X-Ray 12/12/17 16:45 IMPRESSION: COPD. NO ACUTE RADIOGRAPHIC FINDING IN THE CHEST. Tibia/Fibula X-Ray 12/12/17 16:45 IMPRESSION: NO RADIOGRAPHIC EVIDENCE OF ACUTE INJURY. Renal Ultrasound 12/12/17 18:24 IMPRESSION: UNREMARKABLE RENAL ULTRASOUND. GONZALEZ CATHETER WITHIN THE BLADDER. Assessment & Plan - Diagnosis (1) Gross hematuria Is this a current diagnosis for this admission?: Yes Plan: The patient's gross hematuria has resolved. Her urine in the Gonzalez bag is still somewhat dark. The patient's daughter is unsure whether she wants her to have a cystoscopy performed during this hospitalization will make a decision over the weekend. If she decides to proceed the recommendation from Dr. Medley was to call the urology office on Saturday and get the on-call doctor to schedule a cystoscopy as an inpatient. (2) Cellulitis of left lower extremity Is this a current diagnosis for this admission?: Yes Plan: She will continue IV vancomycin and Zosyn. This is the first full day of treatment. 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 They have made recommendations for wound care. At this point it does not need to be debrided. (4) Pressure ulcer of right calf, stage 2 Is this a current diagnosis for this admission?: Yes Plan: Plan as above (5) Anemia Is this a current diagnosis for this admission?: Yes Plan: Likely secondary to chronic disease. She will have a CBC drawn in the morning (6) Hyponatremia Is this a current diagnosis for this admission?: Yes Plan: This was quite mild and has resolved. (7) Ambulatory dysfunction Is this a current diagnosis for this admission?: Yes Plan: We will get physical therapy to see the patient. She is essentially bedbound at this point. - Time Time Spent with patient: 25-34 minutes - Inpatient Certification Medical Necessity: Need for IV Antibiotics - Inpatient hospitalization remains necessary for parenteral antibiotics. Timing of disposition will be determined by her clinical course.
[2017-12-13] MEDS: VANCOMYCIN HCL 1,000 MG in DEXTROSE 5%-WATER 250 ML IV SCH (17:16)
[2017-12-13] MEDS: OXYBUTYNIN CHLORIDE 5 MG TABLET PO SCH (17:33)
[2017-12-13] MEDS: ASCORBIC ACID 500 MG TABLET PO SCH (17:34)
[2017-12-13] MEDS ORDERED: RANITIDINE HCL 50 MG PO SCH (18:00)
[2017-12-13] MEDS ORDERED: POTASSIUM 99 MG PO SCH (18:00)
[2017-12-13] MEDS ORDERED: (PENDING PHARMACY ID) (Vitamin E [Vitamin E] 400 UNIT) PO SCH (18:00)
[2017-12-13] MEDS ORDERED: FERROUS SULFATE 27 MG PO SCH (18:00)
[2017-12-13] MEDS: FAMOTIDINE 20 MG TABLET PO SCH (18:08)
[2017-12-13] MEDS: VITAMIN E (DL, ACETATE) 400 UNIT CAPSULE PO SCH (18:09)
[2017-12-13] MEDS: FERROUS SULFATE 325 MG TABLET PO SCH (18:09)
[2017-12-13] MEDS: ALPRAZOLAM 0.25 MG TABLET PO SCH (21:35)
[2017-12-13] MEDS: ATORVASTATIN CALCIUM 10 MG TABLET PO SCH (21:35)
[2017-12-13] MEDS ORDERED: (PENDING PHARMACY ID) (Ropinirole Hcl [Requip] 0.5 MG) PO SCH (22:00)
[2017-12-13] MEDS ORDERED: (PENDING PHARMACY ID) (Pravastatin Sodium [Pravachol] 40 MG) PO SCH (22:00)
[2017-12-14] MEDS: PIPERACILLIN SODIUM/TAZOBACTAM 2.25 GM in NORMAL SALINE 50 ML IV SCH ×4 (03:49→21:29)
[2017-12-14] MEDS: HEPARIN SOD (PORCINE) 5,000 UNIT/ML 1 ML SYRINGE SUBCUT SCH ×3 (06:48→21:28)
[2017-12-14] MEDS: TRAMADOL HCL 50 MG TABLET PO SCH (08:17)
[2017-12-14] MEDS ORDERED: ONDANSETRON HCL INJ/PF 4 MG/2 ML SDV ONE (08:19)
[2017-12-14] MEDS ORDERED: (PENDING PHARMACY ID) (Fexofenadine Hcl [Allegra Allergy] 180 MG) PO SCH (10:00)
[2017-12-14] MEDS: OXYBUTYNIN CHLORIDE 5 MG TABLET PO SCH ×2 (10:52→17:51)
[2017-12-14] MEDS: SENNOSIDES/DOCUSATE 8.6-50 MG 1 EACH TABLET PO SCH (10:52)
[2017-12-14] MEDS: METOPROLOL TARTRATE 50 MG TABLET PO SCH ×2 (10:53→21:29)
[2017-12-14] MEDS: FAMOTIDINE 20 MG TABLET PO SCH ×2 (10:53→17:51)
[2017-12-14] MEDS: LORATADINE 10 MG TABLET PO SCH (10:53)
[2017-12-14] MEDS: MULTIVITAMIN TABLET PO SCH (10:53)
[2017-12-14] MEDS: BENAZEPRIL HCL 10 MG TABLET PO SCH (10:54)
[2017-12-14] MEDS: ASPIRIN 81 MG TABLET, ENT COATED PO SCH (10:54)
--- NOTE | 2017-12-14 12:21 | PDOC PROGRESS REPORT ---
Subjective Progress Note for:: 12/14/17 Subjective:: Patient is seen resting in bed. She is awake and alert. She is extremely hard of hearing. Her daughter and son are at the bedside. She looks to her daughter to answer all her questions. She denies any chest pain, shortness of breath or dyspnea. She had some nausea earlier this is resolved with Zofran. She is complaining of some constipation issues she just had her Senokot. She denies any pain in her right leg at the present time. She is complaining of pain in the right shoulder there is ecchymosis at the proximal shoulder as well. She denies any arthralgias or myalgias. Remaining review of systems are negative. Reason For Visit: HEMATURIA, CELLULITIS FALLS Physical Exam Vital Signs: Temp Pulse Resp BP Pulse Ox 97.3 F 78 16 141/67 H 97 12/14/17 11:10 12/14/17 11:10 12/14/17 11:10 12/14/17 11:10 12/14/17 11:10 Intake & Output 12/13/17 12/14/17 12/15/17 06:59 06:59 06:59 Intake Total 1064 100 Output Total 850 4050 Balance -850 -2986 100 Weight 64.5 kg 71.9 kg General appearance: PRESENT: no acute distress, well-developed, well-nourished, other - Extremely hard of hearing Head exam: PRESENT: atraumatic, normocephalic Eye exam: PRESENT: conjunctiva pink, EOMI, PERRLA. ABSENT: scleral icterus Ear exam: PRESENT: normal external ear exam Mouth exam: PRESENT: moist, tongue midline Neck exam: ABSENT: carotid bruit, JVD, lymphadenopathy, thyromegaly Respiratory exam: PRESENT: clear to auscultation roya. ABSENT: rales, rhonchi, wheezes Cardiovascular exam: PRESENT: RRR. ABSENT: diastolic murmur, rubs, systolic murmur Pulses: PRESENT: normal dorsalis pedis pul Vascular exam: PRESENT: normal capillary refill GI/Abdominal exam: PRESENT: normal bowel sounds, soft. ABSENT: distended, guarding, mass, organolmegaly, rebound, tenderness Rectal exam: PRESENT: deferred Extremities exam: PRESENT: calf tenderness, other - Dressings intact to right lower extremity wounds. Musculoskeletal exam: PRESENT: ambulatory, dislocation, full ROM Neurological exam: PRESENT: alert, awake, oriented to person, oriented to place , oriented to time, oriented to situation, CN II-XII grossly intact. ABSENT: motor sensory deficit Psychiatric exam: PRESENT: appropriate affect, normal mood. ABSENT: homicidal ideation, suicidal ideation Skin exam: PRESENT: dry, intact, warm. ABSENT: cyanosis, rash Results Laboratory Results: 12/13/17 04:32 12/13/17 04:32 Impressions: Limited or Localized CT 12/12/17 16:44 IMPRESSION: 1. Cardiomegaly. 2. Cholelithiasis. 3. A nonobstructing intrarenal calculus in each kidney. 4. Ventral hernia containing unobstructed bowel. 5. Degenerative disc disease. 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 Chest X-Ray 12/12/17 16:45 IMPRESSION: COPD. NO ACUTE RADIOGRAPHIC FINDING IN THE CHEST. Tibia/Fibula X-Ray 12/12/17 16:45 IMPRESSION: NO RADIOGRAPHIC EVIDENCE OF ACUTE INJURY. Renal Ultrasound 12/12/17 18:24 IMPRESSION: UNREMARKABLE RENAL ULTRASOUND. GONZALEZ CATHETER WITHIN THE BLADDER. Assessment & Plan - Diagnosis (1) Ambulatory dysfunction Is this a current diagnosis for this admission?: Yes Plan: This is been a chronic issue ongoing since her knee replacement. Daughter states she went to rehab and that is when she developed the heel ulcer in the sacral wound. She is adamant she is not going back to rehab. She states she lives next door to her if she has home health and home physical therapy. She does follow with wound care clinic as well (2) Anemia Qualifiers: Anemia type: iron deficiency Is this a current diagnosis for this admission?: Yes Plan: Presently is stable. (3) Cellulitis Qualifiers: Site of cellulitis: extremity Site of cellulitis of extremity: lower extremity Laterality: right Qualified Code(s): L03.115 - Cellulitis of right lower limb Is this a current diagnosis for this admission?: Yes Plan: She has a normal white count of her cultures are negative. Will continue IV antibiotics for 1 more day can certainly cover her with oral after that if ulcers remain negative (4) Falls Is this a current diagnosis for this admission?: Yes Plan: She will continue with physical therapy. (5) Gross hematuria Is this a current diagnosis for this admission?: Yes Plan: She has had a history of recurrent bladder cancer. Most likely this is the cause. She was seen by urology here. She will need another cystoscopy. Daughter would like this to be done by her urologist at [facility] who she follows with. (6) Pressure ulcer of right calf, stage 2 Is this a current diagnosis for this admission?: Yes Plan: Continue local wound care and antibiotics. 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 She will follow with wound care clinic after discharge - Time Time Spent with patient: 25-34 minutes Total Critical Time (Minutes): 30 Medications reviewed and adjusted accordingly: Yes Anticipated discharge: Home with Homehealth
--- NOTE | 2017-12-14 14:03 | RADIOLOGY REPORT (SQ) ---
EXAM DESCRIPTION: SHOULDER RIGHT 1 VIEW COMPLETED DATE/TIME: 12/14/2017 1:43 pm REASON FOR STUDY: Right shoulder pain and bruising after fall COMPARISON: None. NUMBER OF VIEWS: One view right shoulder. LIMITATIONS: Single image may be limited for detection of subtle fracture or dislocation. FINDINGS: Osteopenic. No gross fracture or dislocation. Cuff calcific tendinitis. Clear right riana g. OTHER: No other significant finding. IMPRESSION: As above. Limited single view radiographs is negative for acute abnormality. TECHNICAL DOCUMENTATION: JOB ID: [id number] Reading location - IP/workstation name: [email or web address]
[2017-12-14] MEDS: FERROUS SULFATE 325 MG TABLET PO SCH (17:51)
[2017-12-14] MEDS: ASCORBIC ACID 500 MG TABLET PO SCH (17:51)
[2017-12-14] MEDS: VITAMIN E (DL, ACETATE) 400 UNIT CAPSULE PO SCH (17:51)
[2017-12-14] MEDS: VANCOMYCIN HCL 1,000 MG in DEXTROSE 5%-WATER 250 ML IV SCH (17:52)
[2017-12-14] MEDS ORDERED: POTASSIUM CHLORIDE 10 MEQ CAPSULE.ER PO SCH (18:00)
[2017-12-14] MEDS: ONDANSETRON HCL INJ/PF 4 MG/2 ML SDV IV PRN (19:55)
[2017-12-14] MEDS: ATORVASTATIN CALCIUM 10 MG TABLET PO SCH (21:29)
[2017-12-14] MEDS: ALPRAZOLAM 0.25 MG TABLET PO SCH (21:29)
[2017-12-14] MEDS ORDERED: ROPINIROLE HCL 0.25 MG TABLET PO SCH (22:00)
[2017-12-15] MEDS: PIPERACILLIN SODIUM/TAZOBACTAM 2.25 GM in NORMAL SALINE 50 ML IV SCH ×2 (04:03→08:10)
[2017-12-15] MEDS ORDERED: ACETAMINOPHEN 325 MG TABLET PO PRN (04:33)
[2017-12-15] MEDS: HEPARIN SOD (PORCINE) 5,000 UNIT/ML 1 ML SYRINGE SUBCUT SCH (05:53)
[2017-12-15] MEDS: TRAMADOL HCL 50 MG TABLET PO SCH (08:09)
[2017-12-15 08:26] VITALS: BP 135/56
[2017-12-15] MEDS: ONDANSETRON HCL INJ/PF 4 MG/2 ML SDV IV PRN (10:14)
[2017-12-15] MEDS: FAMOTIDINE 20 MG TABLET PO SCH (10:14)
[2017-12-15] MEDS: SENNOSIDES/DOCUSATE 8.6-50 MG 1 EACH TABLET PO SCH (10:15)
[2017-12-15] MEDS: METOPROLOL TARTRATE 50 MG TABLET PO SCH (10:15)
[2017-12-15] MEDS: LORATADINE 10 MG TABLET PO SCH (10:16)
[2017-12-15] MEDS: BENAZEPRIL HCL 10 MG TABLET PO SCH (10:16)
[2017-12-15] MEDS: MULTIVITAMIN TABLET PO SCH (10:16)
[2017-12-15] MEDS: ASPIRIN 81 MG TABLET, ENT COATED PO SCH (10:16)
[2017-12-15] MEDS: OXYBUTYNIN CHLORIDE 5 MG TABLET PO SCH (10:16)
--- NOTE | 2017-12-15 11:46 | PDOC DISCHARGE SUMMARY ---
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 Is this a current diagnosis for this admission?: Yes - Additional Information Resuscitation Status: Full Code Discharge Diet: Regular Discharge Activity: Activity As Tolerated, Balance Activity w/Rest Home Medications: Alprazolam [Xanax 0.25 mg Tablet] 0.25 mg PO QHS 12/13/17 Ascorbic Acid [Vitamin C 500 mg Tablet] 500 mg PO QPM 12/13/17 Aspirin [Ecotrin 81 mg EC Tablet] 81 mg PO BID 12/13/17 Benazepril HCl [Lotensin 10 mg Tablet] 10 mg PO DAILY 12/13/17 Ca/D3/Mag Ox/Zinc/Licensing Manager/Parvez/Bor [Calcium 600-D3 Plus Caplet] 1 tab PO QPM Cranberry Fruit Concentrate [Cranberry] 450 mg PO DAILY 12/13/17 Cyanocobalamin (Vitamin B-12) [Vitamin B12] 2,500 mcg PO TUTH@1800 12/13/17 Ferrous Sulfate [High Potency Iron] 27 mg PO QPM 12/13/17 Fexofenadine HCl [Romana Allergy] 180 mg PO DAILY 12/13/17 Hydrochlorothiazide [Hydrodiuril 12.5 mg Capsule] 12.5 mg PO DAILY 12/13/17 Meloxicam [Mobic] 7.5 mg PO DAILY 12/13/17 Metoprolol Tartrate [Lopressor 50 mg Tablet] 50 mg PO Q12 12/13/17 Multivitamin [Tab-A-Michaelle (Multiple Vitamin) Tablet] 1 tab PO DAILY 12/13/17 Oxybutynin Chloride [Ditropan 5 mg Tablet] 5 mg PO BID 06/08/18 Potassium 99 mg PO QPM 12/13/17 Pravastatin Sodium [Pravachol] 40 mg PO QHS 12/13/17 Ranitidine HCl [Zantac 150 mg Tablet] 50 mg PO BID 12/13/17 Ropinirole HCl [Requip] 0.5 mg PO QHS 12/13/17 Tramadol HCl [Ultram 50 mg Tablet] 50 mg PO QAM 12/13/17 Tramadol HCl [Ultram 50 mg Tablet] 100 mg PO QHS 12/13/17 Vitamin E 400 unit PO QPM 12/13/17 Acetaminophen [Tylenol 325 mg Tablet] 650 mg PO Q4HP PRN tablet 12/15/17 History of Present Illness Patient complains of: Blood in urine History of Present Illness: QUANG ORTIZ is a 87 year old female with a past medical history of peripheral neuropathy, left heel ulcer, hypertension, chronic left bundle branch block, remote bladder cancer unclear status and gait instability. Patient presents with 12 hours of hematuria, right leg erythema and pain prompting her to seek evaluation in the emergency room where she is found to have moe hematuria, right leg cellulitis and stage IV left heel ulcer. She started on empiric antibiotics and referred to the hospitalist for admission. Patient denies recent change in medications, antibiotics and is otherwise felt well. She admits to exceptional gait instability and is essentially bedbound with exception of transfer from bed to commode. Hospital Course Hospital Course: Patient was admitted to the telemetry floor. Surgery was consulted for her wounds. Dr. Donahue saw the patient in consult. He does not feel the wounds were infected. He recommended local wound care, which the patient has been doing at home with the wound care clinic and home health nursing. Dr. Medley, urologist, saw the patient in consult for her hematuria. Urine culture did not grow any bacteria. Patient does have a history of recurrent bladder cancer. He recommended cystoscopy. The patient and daughter would like to follow-up with the urologist in [place] who is treated her prior. They will call and make that appointment. They are aware there is concern of recurrent bladder cancer causing hematuria. Her hematuria actually did clear however today. Her Gonzalez catheter was discontinued and she was able to void without difficulty. Patient and daughter would like to be discharged home. She will resume home health nursing care tomorrow on Saturday. Physical Exam Vital Signs: Temp Pulse Resp BP Pulse Ox 98.8 F 75 12 135/56 H 96 12/15/17 07:20 12/15/17 07:20 12/15/17 07:20 12/15/17 07:20 12/15/17 07:20 General appearance: PRESENT: no acute distress, well-developed, well-nourished Head exam: PRESENT: atraumatic, normocephalic Eye exam: PRESENT: conjunctiva pink, EOMI, PERRLA. ABSENT: scleral icterus Ear exam: PRESENT: normal external ear exam Mouth exam: PRESENT: moist, tongue midline Neck exam: ABSENT: carotid bruit, JVD, lymphadenopathy, thyromegaly Respiratory exam: PRESENT: clear to auscultation roya, symmetrical, unlabored Cardiovascular exam: PRESENT: RRR. ABSENT: diastolic murmur, rubs, systolic murmur Pulses: PRESENT: normal carotid pulses, normal radial pulses Vascular exam: PRESENT: normal capillary refill GI/Abdominal exam: PRESENT: normal bowel sounds, soft. ABSENT: distended, guarding, mass, organolmegaly, rebound, tenderness Rectal exam: PRESENT: deferred Extremities exam: PRESENT: full ROM, tenderness - right lower leg wound no surrounding erythema Musculoskeletal exam: PRESENT: full ROM, normal inspection Neurological exam: PRESENT: alert, awake, oriented to person, oriented to place , oriented to time, oriented to situation, CN II-XII grossly intact. ABSENT: motor sensory deficit Psychiatric exam: PRESENT: appropriate affect, normal mood. ABSENT: homicidal ideation, suicidal ideation Skin exam: PRESENT: dry - wounds to lower right leg and left heel, warm Results Impressions: Limited or Localized CT 12/12/17 16:44 IMPRESSION: 1. Cardiomegaly. 2. Cholelithiasis. 3. A nonobstructing intrarenal calculus in each kidney. 4. Ventral hernia containing unobstructed bowel. 5. Degenerative disc disease. 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 Chest X-Ray 12/12/17 16:45 IMPRESSION: COPD. NO ACUTE RADIOGRAPHIC FINDING IN THE CHEST. Tibia/Fibula X-Ray 12/12/17 16:45 IMPRESSION: NO RADIOGRAPHIC EVIDENCE OF ACUTE INJURY. Renal Ultrasound 12/12/17 18:24 IMPRESSION: UNREMARKABLE RENAL ULTRASOUND. GONZALEZ CATHETER WITHIN THE BLADDER. Shoulder X-Ray 06/09/18 00:00 IMPRESSION: As above. Limited single view radiographs is negative for acute abnormality. Qualifiers - * PATIENT BEING DISCHARGED WITH ANY OF THE FOLLOWING DIAGNOSIS: No Plan Discharge Plan: Home with home health nursing Follow up with wound care clinic as scheduled Time Spent: Less than 30 Minutes
[2017-12-17] MEDS ORDERED: (PENDING PHARMACY ID) (Cyanocobalamin (Vitamin B-12) [Vitamin B12] 2,500 MCG) PO SCH (18:00)
[2017-12-17] MEDS ORDERED: CYANOCOBALAMIN (VITAMIN B-12) 1,000 MCG TABLET PO SCH (18:00)
== END 2017-12-15 13:09 | disposition home health service (06) | DRG 602 ==
LOC: ER 16:10 → INTOOBSV 21:58 → EH 21:58 → 4S 12-13 01:00 → OBSVTOIN 12-15 07:48
PROVIDERS: ADMIT Internal Medicine; ATTEND Internal Medicine
DX: L03.115 Cellulitis of right lower limb (principal); L89.624 Pressure ulcer of left heel, stage 4; L97.422 Non-pressure chronic ulcer of left heel and midfoot with fat layer exposed; E87.1 Hypo-osmolality and hyponatremia; W19.XXXA Unspecified fall, initial encounter; L89.892 Pressure ulcer of other site, stage 2; I10 Essential (primary) hypertension; G62.9 Polyneuropathy, unspecified; I44.7 Left bundle-branch block, unspecified; R26.89 Other abnormalities of gait and mobility; K80.20 Calculus of gallbladder without cholecystitis without obstruction; K43.9 Ventral hernia without obstruction or gangrene; N20.0 Calculus of kidney; M16.11 Unilateral primary osteoarthritis, right hip; E78.00 Pure hypercholesterolemia, unspecified; J44.9 Chronic obstructive pulmonary disease, unspecified; N30.91 Cystitis, unspecified with hematuria; D63.8 Anemia in other chronic diseases classified elsewhere; Z96.652 Presence of left artificial knee joint; Z79.82 Long term (current) use of aspirin; Z79.899 Other long term (current) drug therapy; Z85.51 Personal history of malignant neoplasm of bladder; Z90.710 Acquired absence of both cervix and uterus; Z88.2 Allergy status to sulfonamides; Z88.8 Allergy status to other drugs, medicaments and biological substances; Z82.49 Family history of ischemic heart disease and other diseases of the circulatory system
CPT/HCPCS: 36415; 51702; 71045; 76380; 76770; 80048; 80053; 81001; 83605; 85025; 87040; 87086; 96365; 96367; 96375; 99291; G0378; G8978-GP; G8979-GP; J0696; J1644; J2270; J2405; J2543; J3370; J3490; J7030; J7060

== ENCOUNTER → 2018-03-05 | Outpatient (CLI) | payer MEDICARE ==
--- NOTE | 2018-03-05 13:49 | RADIOLOGY REPORT (SQ) ---
EXAM DESCRIPTION: FOOT LEFT COMPLETE COMPLETED DATE/TIME: 03/05/2018 1:33 pm REASON FOR STUDY: NON PRESSURE ULCER W/ FAT LAYER EXPOSED L97.212 NON-PRESSURE CHRONIC ULCER OF RIG HT CALF W FAT LAYER pressure ulcer over the left calcaneus for over a year COMPARISON: 08/06/2017 NUMBER OF VIEWS: Three views. TECHNIQUE: AP, lateral and oblique radiographic images acquired of the left foot. LIMITATIONS: None. FINDINGS: MINERALIZATION: Normal. BONES: No acute fracture or dislocation. No worrisome bone lesions. JOINTS: No effusions. SOFT TISSUES: Dorsal calcaneal ulcer is present with radiopaque ointment in the wound. No soft tissu e gas or radiopaque foreign body. No aggressive demineralization of the calcaneus worrisome for oste omyelitis OTHER: No other significant finding. IMPRESSION: Dorsal calcaneal ulcer is present without aggressive demineralization to suggest osteomy luis TECHNICAL DOCUMENTATION: JOB ID: [id number] [employer]- All Rights Reserved Reading location - IP/workstation name: [facility]
[2018-03-05 14:45] LABS: ABSOLUTE EOSINOPHILS # (AUTO) 0.2 10^3/uL (0.0-0.6); ABSOLUTE LYMPHOCYTES (AUTO) 1.9 10^3/uL (0.5-4.7); ABSOLUTE MONOCYTES (AUTO) 0.8 10^3/uL (0.1-1.4); ABSOLUTE NEUT (AUTO) 4.5 10^3/uL (1.7-8.2); BASOPHILS % (AUTO) 0.6 % (0-2); EOSINOPHILS % (AUTO) 3.2 % (0-6); HEMATOCRIT 36.2 % (36.0-47.0); HEMOGLOBIN 12.1 g/dL (12.0-15.5); LYMPHOCYTES % (AUTO) 25.9 % (13-45); MEAN CORPUSCULAR HEMOGLOBIN 32.2 pg (27.0-33.4); MEAN CORPUSCULAR HGB CONC 33.5 g/dL (32.0-36.0); MEAN CORPUSCULAR VOLUME 96 fl (80-97); MONOCYTES % (AUTO) 10.1 % (3-13); PLATELET COUNT 241 10^3/uL (150-450); RED BLOOD COUNT 3.75 10^6/uL (3.72-5.28); RED CELL DISTRIBUTION WIDTH 14.2 % (11.5-14.0); SEGMENTED NEUTROPHILS % (AUTO) 60.2 % (42-78); TOTAL CELLS COUNTED % (AUTO) 100 %; WHITE BLOOD COUNT 7.5 10^3/uL (4.0-10.5)
[2018-03-05 15:17] LABS: ALANINE AMINOTRANSFERASE 29 U/L (9-52); ALBUMIN 3.6 g/dL (3.5-5.0); ALKALINE PHOSPHATASE 67 U/L (38-126); ANION GAP 9 (5-19); ASPARTATE AMINO TRANSFERASE 27 U/L (14-36); BILIRUBIN,DIRECT 0.3 mg/dL (0.0-0.4); BILIRUBIN,TOTAL 0.3 mg/dL (0.2-1.3); BLOOD UREA NITROGEN 17 mg/dL (7-20); C-REACTIVE PROTEIN 5.4 mg/L (<10.0); CALCIUM 9.8 mg/dL (8.4-10.2); CARBON DIOXIDE 31 mmol/L (22-30); CHLORIDE 103 mmol/L (98-107); GLUCOSE 95 mg/dL (75-110); POTASSIUM 4.5 mmol/L (3.6-5.0); SODIUM 142.7 mmol/L (137-145); TOTAL PROTEIN 7.1 g/dL (6.3-8.2)
[2018-03-05 15:22] LABS: ERYTHROCYTE SEDIMENTATION RATE 36 mm/hr (0-30)
--- NOTE | 2018-03-06 11:19 | XCELERA REPORT ---
[address] [address] Lower Extremity Arterial Evaluation Name: QUANG ORTIZ Age: 87 yrs Gender: Female : 1930 Patient Status: Outpatient Patient Location: Study Date: 03/05/2018 01:43 PM Procedure: A color flow and duplex scan of the lower extremity arteries was performed bilaterally with velocity and waveform anaylsis. Reason For Study: ULCER Ordering Physician: BELLO BAILEY Performed By: Anuja Bateman Measurements and Calculations Right Left NURSES EDUCATOR PSV 88.2 109.2 cm/sec Prox PFA PSV -109.0 -58.1 cm/sec Prox SFA PSV 101.2 104.8 cm/sec Mid SFA PSV -88.2 -124.3cm/sec Dist SFA PSV -78.2 -73.0 cm/sec Prox Pop A PSV 58.3 81.3 cm/sec Prox SHAWN PSV 79.8 cm/sec Dist SHAWN PSV 18.1 124.6 cm/sec Prox BIOMEDICAL EQUIPMENT TECHNICIAN PSV 41.6 cm/sec Dist BIOMEDICAL EQUIPMENT TECHNICIAN PSV -15.7 100.0 cm/sec Stephen Pedis PSV 32.0 -43.1 cm/sec Right Side Arterial Evaluation Normal velocity and triphasic waveforms noted from the Common Femoral artery to the Popliteal. Biphasic in the Deep Femoral. Monophasic , minimal flow in the Posterior Tibial. Biphasic flow with somewhat diminished velocity in the Anterior Tibial artery. 0-19% stenosis at the deep Femoral artery.20-49 in the Anterior Tibial. Ankle Brachial index was not obtainable due to ulcers. Left Side Arterial Evaluation Normal velocity and triphasic waveforms noted from the Common Femoral artery to the infrageniculate vessels. Biphasic in the Deep Femoral. Biphasic flow with somewhat diminished velocity in the Dorsalis Pedis artery. 0-19% stenosis at the deep Femoral and Dorsalis Pedis. Interpretation Summary Moderate hemodynamically significant lesions in the right lower extremity only, on duplex imaging, at rest. Mild hemodynamically significant lesions in the left lower extremity only, on duplex imaging, at rest. : BELLO BAILEY > Juan Carias
== END ==
LOC: SP 12:46
PROVIDERS: ATTEND Nurse Practitioner
DX: L97.212 Non-pressure chronic ulcer of right calf with fat layer exposed (principal); L97.422 Non-pressure chronic ulcer of left heel and midfoot with fat layer exposed
CPT/HCPCS: 36415; 80053; 85025; 85652; 86140; 93925